=== PATIENT | female | born 1965 | race African-American/Black ===

== ENCOUNTER 2018-01-16 07:20 | Day surgery (SDC) | payer BC ==
[2018-01-16] MEDS ORDERED: LIDOCAINE 2% (SDV) 5 ML INJ (08:45)
[2018-01-16] MEDS ORDERED: PROPOFOL 60 ML (08:45)
== END 2018-01-16 09:49 | disposition home or self-care (01) ==
LOC: GIL 07:20
DX: K29.70 Gastritis, unspecified, without bleeding (principal); I10 Essential (primary) hypertension
CPT/HCPCS: 43239; 88305; 88312

== ENCOUNTER 2018-10-14 10:10 | Day surgery (SDC) | payer BC ==
[2018-10-14] MEDS ORDERED: PROPOFOL 40 ML (12:19)
[2018-10-14] MEDS ORDERED: LIDOCAINE 2% (SDV) 5 ML INJ (12:19)
[2018-10-14] MEDS ORDERED: FENTAnyl 50 MCG/ML VIAL (12:19)
== END 2018-10-14 16:13 | disposition home or self-care (01) ==
LOC: GIL 10:10
DX: Z12.11 Encounter for screening for malignant neoplasm of colon (principal); K25.9 Gastric ulcer, unspecified as acute or chronic, without hemorrhage or perforation; I10 Essential (primary) hypertension; I73.9 Peripheral vascular disease, unspecified; F17.200 Nicotine dependence, unspecified, uncomplicated
CPT/HCPCS: 43239; 88305